=== PATIENT | female | born 1955 | race Caucasian/White ===

== ENCOUNTER 2019-06-12 09:34 | Outpatient (CLI) | payer BC ==
[~2019-06-12 09:34] MED LIST: BARIUM SULFATE 340 ML SUSP.RECON***PROCEDURE AREA ONLY**DONT ENTER PO ONE; BARIUM SULFATE 700 MG TABLET PO ONE; SIMETHICONE/SOD BICARB/CIT AC PACKET PO ONE
== END 2019-06-12 23:59 | disposition home or self-care (01) ==
LOC: RAD 09:34
PROVIDERS: ATTEND Family Medicine
DX: K21.9 Gastro-esophageal reflux disease without esophagitis (principal)
CPT/HCPCS: 74241

== ENCOUNTER 2024-05-01 08:29 | Outpatient (CLI) | payer MEDICARE | END 2024-05-01 23:59 | disposition home or self-care (01) | LOC: MRI02 08:29 | PROVIDERS: ATTEND Family Medicine | DX: S33.6XXA Sprain of sacroiliac joint, initial encounter (principal); M47.817 Spondylosis without myelopathy or radiculopathy, lumbosacral region; M54.6 Pain in thoracic spine; M54.50 Low back pain, unspecified; M41.85 Other forms of scoliosis, thoracolumbar region; X58.XXXA Exposure to other specified factors, initial encounter; Y93.89 Activity, other specified; Y92.89 Other specified places as the place of occurrence of the external cause; Y99.8 Other external cause status | CPT/HCPCS: 72146; 72148; 72195 ==